=== PATIENT | male | born 1955 | race Caucasian/White ===

== ENCOUNTER → 2017-09-23 | Day surgery (SDC) | payer BC ==
[~2017-09-23] VITALS: Ht 177.8 cm; Wt 98.0 kg
[~2017-09-23] MED LIST: LISINOPRIL20 M1 PO; OMEPRAZOLE20 M2 PO
--- NOTE | 2017-09-23 10:46 | ED GI/GU/ABDOMINAL COMPLAINT ---
History of Present Illness General Chief Complaint: Abdominal Pain/Flank Pain Stated Complaint: CONSTIPATION X 3DYS/ABD PAIN Source: patient Exam Limitations: no limitations Vital Signs & Intake/Output Vital Signs & Intake/Output Vital Signs Date Time Temp Pulse Resp B/P B/P Pulse O2 O2 Flow FiO2 Mean Ox Delivery Rate 09/23 1314 96.3 88 18 162/100 97 Room Air 09/23 1240 Room Air 09/23 1041 96.9 97 18 135/89 98 Room Air Allergies Coded Allergies: codeine (Severe, TOUNGE PEEL 09/23/17) Reconcile Medications Lisinopril 20 MG TABLET 1 TAB PO DAILY HEART (Reported) Omeprazole 20 MG CAPSULE.DR 1 CAP PO DAILY GI (Reported) Triage Note: 62 YO MALE TO TRIAGE C/O LLQ PAIN AND CONSTIPATION X 3 DAYS. STATES PAIN IS WORSE WITH TAKING IN A DEEP BREATH. DENIES URIANRY S/S. DENIES [place]. STATES LLQ PAIN HAS BEEN GOING ON FOR 3-4 DAYS. Triage Nurses Notes Reviewed? yes Onset: Abrupt Duration: day(s): (FEW), constant, continues in ED Timing: recent history Quality/Severity: moderate Radiation: no radiation No Modifying Factors: none HPI: 62-year-old male comes into the emergency room with complaints of left lower abdominal pain. Denies any fever or chills. Pain is worse with a cough or deep breath. He is a decrease in bowel movements. Denies any vomiting. He denies any chest pain or shortness of breath. Denies any prior abdominal surgeries. He comes in for further evaluation. Past History Travel History Traveled to [place] past 21 day No Medical History Any Pertinent Medical History? 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 No Review of Systems Review of Systems Constitutional: Reports: no symptoms. EENTM: Reports: no symptoms. Respiratory: Reports: no symptoms. Cardiovascular: Reports: no symptoms. GI: Reports: see HPI. Genitourinary: Reports: no symptoms. Musculoskeletal: Reports: no symptoms. Skin: Reports: no symptoms. Neurological/Psychological: Reports: no symptoms. Hematologic/Endocrine: Reports: no symptoms. Immunologic/Allergic: Reports: no symptoms. All Other Systems: Reviewed and Negative Physical Exam Physical Exam General Appearance: well developed/nourished, alert, awake Head: atraumatic Eyes: Bilateral: normal appearance. Ears, Nose, Throat, Mouth: hearing grossly normal, moist mucous membrane Neck: normal inspection Respiratory: normal breath sounds, no respiratory distress Cardiovascular: regular rate/rhythm Gastrointestinal: soft, tenderness (LLQ) Back: normal inspection Extremities: normal range of motion Neurologic/Psych: awake, alert, oriented x 3 Skin: intact, normal color Core Measures ACS in differential dx? No Sepsis Present: No Sepsis Focused Exam Completed? No Progress Differential Diagnosis: appendicitis, biliary colic, bowel obstruction, diverticulitis, gastritis, ischemic bowel, pancreatitis, peptic ulcer, PUD/GERD, UTI/pyelo Plan of Care: Orders Procedure Date/time Status LACTIC ACID 09/23 1345 Active URINALYSIS 09/23 1228 Active LIPASE 09/23 1045 Complete LACTIC ACID 09/23 1045 Complete COMPREHENSIVE METABOLIC PANEL 09/23 1045 Complete CBC WITHOUT DIFFERENTIAL 09/23 1045 Complete [id number] VIEW 09/23 UNK Active Laboratory Tests 09/23/17 1129: Anion Gap 14, Estimated GFR > 60, BUN/Creatinine Ratio 16.0, Glucose 109 H, Lactic Acid 0.9, Calcium 9.5, Total Bilirubin 0.6, AST 19, ALT 23, Alkaline Phosphatase 63, Total Protein 7.0, Albumin 4.0, Globulin 3.0, Albumin/Globulin Ratio 1.3, Lipase 267, CBC w Diff NO MAN DIFF REQ, RBC 4.91, MCV 88.2, MCH 30.1, MCHC 34.1, RDW 12.5, MPV 7.4, Gran % 73.7, Lymphocytes % 16.0 L, Monocytes % 9.0, Eosinophils % 1.0, Basophils % 0.3, Absolute Granulocytes 7.5 H, Absolute Lymphocytes 1.6, Absolute Monocytes 0.9 H, Absolute Eosinophils 0.1, Absolute Basophils 0 Diagnostic Imaging: Viewed by Me: CT Scan. Discussed w/RAD: CT Scan. Radiology Impression: PATIENT: ANGEL SHIPMAN PRESENT AGE: 62 PATIENT ACCOUNT NO: [id number] : 55 LOCATION: [facility] ORDERING PHYSICIAN: Tobi TONY SERVICE DATE: 09/23/17 EXAM TYPE: CAT - CT ABD & PELVIS W/O IV CONTRAS EXAMINATION: CT ABDOMEN AND PELVIS WITHOUT CONTRAST CLINICAL INFORMATION: Left lower quadrant pain rule out diverticulitis. COMPARISON: There are no prior studies for comparison. TECHNIQUE: Multidetector volumetric imaging was performed from the superior aspect of the liver through the pubic symphysis. Sagittal and coronal reformatted images were obtained on the technologist's workstation. DLP: 549.18 mGy-cm FINDINGS: LUNG BASES: The visualized lung bases are unremarkable. LIVER, GALLBLADDER, AND BILIARY TREE: The liver is normal in size, shape, and attenuation. No focal hepatic lesion or biliary ductal dilatation is present. The gallbladder is unremarkable with no evidence of radiopaque gallstones, gallbladder wall thickening, or obvious pericholecystic inflammatory changes. PANCREAS: Unremarkable. SPLEEN: Unremarkable. ADRENAL GLANDS: There is nodular thickening of the anterior limb of the left adrenal gland without a focal adrenal mass lesion identified. KIDNEYS AND URETERS: There are 2 abutting renal calculi present which appear to be impacted within the proximal left ureter each measures approximately 6 mm in diameter. These are located approximately 3 cm distal to the ureteropelvic junction with associated left-sided hydronephrosis. A cystic structure is present in the anterior aspect of the left kidney upper pole, measuring 4.5 cm in diameter and measuring fluid density by Hounsfield units. The left kidney is edematous in appearance with perinephric stranding present which extends along the retroperitoneum distally towards the pelvis, periureteral inflammatory changes are present in the proximal left ureter. The left ureter distal to the calculi returns to normal caliber and remains normal to the level of the ureterovesical junction. The right kidney is normal in size, shape, and attenuation. No hydronephrosis, hydroureter, or calculi seen. No perinephric stranding. BLADDER: The bladder is not well distended, no calcific densities are present within the bladder lumen. GASTROINTESTINAL TRACT: A few scattered diverticuli are present probably within the sigmoid colon, there is no evidence of acute diverticulitis at this time The small bowel loops are unremarkable. The appendix is nonvisualized. ABDOMINAL WALL: No significant hernia is appreciated. LYMPH NODES: A borderline right pelvic lesion or diffuse present in the external iliac chain (series 2 image 68), measuring 1 cm in short axis dimension however the morphology of the lymph node is within normal limits. Most likely represent an incidental finding. VASCULAR: Unremarkable. PELVIC VISCERA: Coarse calcifications are present within the prostate gland. OSSEOUS STRUCTURES: Multilevel degenerative changes are noted most prominent in the lower thoracic spine. There is heterogeneous bone marrow of the L2 vertebral body which suggests multiple intraosseous hemangiomas. IMPRESSION: 1. Obstructing left ureteral calculi, two 6 millimeter calculi are abutting one another within the proximal left ureter located approximately 3 cm distal to the ureteropelvic junction. Associated edematous appearance of the left kidney, perinephric and proximal periureteral inflammatory changes are consistent with renal colic. 2. Minimal diverticular disease with no evidence of acute diverticulitis at this time. 3. Nodular thickening of the anterior limb of the left adrenal gland without identification of a discrete adrenal mass lesion. 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 <Electronically signed in Other Vendor System> SIGNED BY: Carmel Moore MD 09/23/17 1141 Initial ED EKG: none Comments: 09/23/2017 2:40:03 PM Due to the fact that the stone was obstructing Dr. Siddiqui is going to take the patient to the OR to place a stent. He came and evaluated the patient. IV meds were ordered. Patient was seen in triage initially. He was reevaluated again in the back. Departure Departure Disposition: STILL A PATIENT Condition: Stable Clinical Impression Primary Impression: Ureterolithiasis Referrals: Terry DÍAZ,Lex Moreno (PCP/Family) Departure Forms: Customer Survey General Discharge Information OR/GI Note Spoke With: Artur [facility] Treatment Decision: ANGEL SHIPMAN requires urgent operative management or an emergent procedure that cannot be performed in the Emergency Room setting. Transport To: [facility] Critical Care Note Critical Care Note Critical Care Time: 30-74 min (35)
[2017-09-23 11:36] LABS: ABSOLUTE BASOPHIL COUNT 0 /CUMM (0.0-0.2); ABSOLUTE EOSINOPHIL COUNT 0.1 /CUMM (0.0-0.7); ABSOLUTE GRANULOCYTE CT 7.5 /CUMM (1.4-6.5); ABSOLUTE LYMPH COUNT 1.6 /CUMM (1.2-3.4); ABSOLUTE MONOCYTE COUNT 0.9 /CUMM (0.10-0.60); BASOPHIL % 0.3 % (0.0-2.0); GRANULOCYTE % 73.7 % (42.2-75.2); HEMATOCRIT 43.3 % (42-52); MEAN CORPUSCULAR HGB 30.1 PG (27.0-31.0); MEAN CORPUSCULAR HGB CONC 34.1 G/DL (33.0-37.0); MEAN CORPUSCULAR VOLUME 88.2 FL (80.0-94.0); MEAN PLATELET VOLUME 7.4 FL (7.4-10.4); PLATELET COUNT 307 /CUMM (130-400); RBC DISTRIBUTION WIDTH 12.5 % (11.5-14.5); RED BLOOD CELL CT 4.91 /CUMM (4.70-6.10); WHITE BLOOD CELL COUNT 10.1 /CUMM (4.8-10.8)
--- NOTE | 2017-09-23 11:41 | CT SCAN REPORT ---
EXAMINATION: CT ABDOMEN AND PELVIS WITHOUT CONTRAST CLINICAL INFORMATION: Left lower quadrant pain rule out diverticulitis. COMPARISON: There are no prior studies for comparison. TECHNIQUE: Multidetector volumetric imaging was performed from the superior aspect of the liver through the pubic symphysis. Sagittal and coronal reformatted images were obtained on the technologist's workstation. DLP: 549.18 mGy-cm FINDINGS: LUNG BASES: The visualized lung bases are unremarkable. LIVER, GALLBLADDER, AND BILIARY TREE: The liver is normal in size, shape, and attenuation. No focal hepatic lesion or biliary ductal dilatation is present. The gallbladder is unremarkable with no evidence of radiopaque gallstones, gallbladder wall thickening, or obvious pericholecystic inflammatory changes. PANCREAS: Unremarkable. SPLEEN: Unremarkable. ADRENAL GLANDS: There is nodular thickening of the anterior limb of the left adrenal gland without a focal adrenal mass lesion identified. KIDNEYS AND URETERS: There are 2 abutting renal calculi present which appear to be impacted within the proximal left ureter each measures approximately 6 mm in diameter. These are located approximately 3 cm distal to the ureteropelvic junction with associated left-sided hydronephrosis. A cystic structure is present in the anterior aspect of the left kidney upper pole, measuring 4.5 cm in diameter and measuring fluid density by Hounsfield units. The left kidney is edematous in appearance with perinephric stranding present which extends along the retroperitoneum distally towards the pelvis, periureteral inflammatory changes are present in the proximal left ureter. The left ureter distal to the calculi returns to normal caliber and remains normal to the level of the ureterovesical junction. The right kidney is normal in size, shape, and attenuation. No hydronephrosis, hydroureter, or calculi seen. No perinephric stranding. BLADDER: The bladder is not well distended, no calcific densities are present within the bladder lumen. GASTROINTESTINAL TRACT: A few scattered diverticuli are present probably within the sigmoid colon, there is no evidence of acute diverticulitis at this time The small bowel loops are unremarkable. The appendix is nonvisualized. ABDOMINAL WALL: No significant hernia is appreciated. LYMPH NODES: A borderline right pelvic lesion or diffuse present in the external iliac chain (series 2 image 68), measuring 1 cm in short axis dimension however the morphology of the lymph node is within normal limits. Most likely represent an incidental finding. VASCULAR: Unremarkable. PELVIC VISCERA: Coarse calcifications are present within the prostate gland. OSSEOUS STRUCTURES: Multilevel degenerative changes are noted most prominent in the lower thoracic spine. There is heterogeneous bone marrow of the L2 vertebral body which suggests multiple intraosseous hemangiomas. IMPRESSION: 1. Obstructing left ureteral calculi, two 6 millimeter calculi are abutting one another within the proximal left ureter located approximately 3 cm distal to the ureteropelvic junction. Associated edematous appearance of the left kidney, perinephric and proximal periureteral inflammatory changes are consistent with renal colic. 2. Minimal diverticular disease with no evidence of acute diverticulitis at this time. 3. Nodular thickening of the anterior limb of the left adrenal gland without identification of a discrete adrenal mass lesion.
[2017-09-23 13:14] VITALS: BP 162/100
--- NOTE | 2017-09-23 13:43 | Cons- Urology ---
General Information and HPI Consulting Request Date of Consult: 09/23/17 Requested By: DO Saenz Gregory-E.R. Reason for Consult: left hydro. with severe colic and obst. ureter stone. Source of Information: patient, family, old records Exam Limitations: no limitations History of Present Illness: 62 yr old pt with 3 days of abd. pain . significantly worse this am and came to ER. CT positive for obst. stone-pain unrelenting. Here for stent then subsequent ESWL stent removal Allergies/Medications Allergies: Coded Allergies: codeine (Severe, TOUNGE PEEL 09/23/17) Home Med List: Lisinopril 20 MG TABLET 1 TAB PO DAILY HEART (Reported) Omeprazole 20 MG CAPSULE.DR 1 CAP PO DAILY GI (Reported) Current Medications: Current Medications Sig/Abhi Start time Last Medication Dose Route Stop Time Status Admin Ketorolac 0 .STK-MED ONE 09/23 1300 DC Tromethamine .ROUTE Ketorolac 30 MG ONCE ONE 09/23 1245 DC 09/23 Tromethamine IV 09/23 1246 1253 Sodium Chloride 1,000 ML BOLUS ONE 09/23 1245 AC 09/23 IV 09/23 1344 1253 Past History Medical History Neurological: NONE EENT: NONE Cardiovascular: hypertension Respiratory: NONE Gastrointestinal: GERD, HIATAL HERNIA Hepatic: NONE Renal: NONE Musculoskeletal: NONE Psychiatric: NONE Endocrine: NONE Blood Disorders: NONE Cancer(s): 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 Ambulation: independent Employment History Retired? unknown Review of Systems Review of Systems Constitutional: Reports: see HPI. EENTM: Denies: no symptoms. Cardiovascular: Denies: no symptoms. Respiratory: Denies: no symptoms. GI: Reports: abdominal pain, bloating. Genitourinary: Denies: no symptoms. Musculoskeletal: Denies: no symptoms. Skin: Denies: no symptoms. Exam & Diagnostic Data Vital Signs and I&O Vital Signs Date Time Temp Pulse Resp B/P B/P Pulse O2 O2 Flow FiO2 Mean Ox Delivery Rate 09/23 1314 96.3 88 18 162/100 97 Room Air 09/23 1240 Room Air 09/23 1041 96.9 97 18 135/89 98 Room Air Intake & Output 09/23 1600 09/23 0800 09/23 0000 09/22 1600 09/22 0800 09/22 0000 Intake Total Output Total Balance Patient 216 lb Weight Weight Reported by Patient Measurement Method Physical Exam General Appearance: well developed/nourished, moderate distress Head: atraumatic Eyes: Bilateral: normal appearance. Respiratory: normal breath sounds Cardiovascular: regular rate/rhythm Gastrointestinal: normal bowel sounds, soft, non-tender Back: CVA tenderness (L) Extremities: normal inspection Neurologic/Psych: no motor/sensory deficits, awake, alert, oriented x 3 Skin: intact, normal color Reproductive: Normal male genitalia Last 24 Hours of Labs: Laboratory Tests 09/23 1129 Chemistry Sodium (137 - 145 mmol/L) 142 Potassium (3.5 - 5.1 mmol/L) 4.3 Chloride (98 - 107 mmol/L) 105 Carbon Dioxide (22 - 30 mmol/L) 24 Anion Gap (5 - 16) 14 BUN (9 - 20 mg/dL) 16 Creatinine (0.7 - 1.2 mg/dL) 1.0 Estimated GFR (>60 ml/min) > 60 BUN/Creatinine Ratio (7 - 25 %) 16.0 Glucose (65 - 99 mg/dL) 109 H Lactic Acid (0.7 - 2.1 mmol/L) 0.9 Calcium (8.4 - 10.2 mg/dL) 9.5 Total Bilirubin (0.2 - 1.3 mg/dL) 0.6 AST (17 - 59 U/L) 19 ALT (21 - 72 U/L) 23 Alkaline Phosphatase (< 127 U/L) 63 Total Protein (6.3 - 8.2 g/dL) 7.0 Albumin (3.5 - 5.0 g/dL) 4.0 Globulin (1.9 - 4.2 gm/dL) 3.0 Albumin/Globulin Ratio (1.1 - 2.2 %) 1.3 Lipase (23 - 300 U/L) 267 Hematology CBC w Diff NO MAN DIFF REQ WBC (4.8 - 10.8 /CUMM) 10.1 RBC (4.70 - 6.10 /CUMM) 4.91 Hgb (14.0 - 18.0 G/DL) 14.8 Hct (42 - 52 %) 43.3 MCV (80.0 - 94.0 FL) 88.2 MCH (27.0 - 31.0 PG) 30.1 MCHC (33.0 - 37.0 G/DL) 34.1 RDW (11.5 - 14.5 %) 12.5 Plt Count (130 - 400 /CUMM) 307 MPV (7.4 - 10.4 FL) 7.4 Gran % (42.2 - 75.2 %) 73.7 Lymphocytes % (20.5 - 51.1 %) 16.0 L Monocytes % (1.7 - 9.3 %) 9.0 Eosinophils % (0 - 5 %) 1.0 Basophils % (0.0 - 2.0 %) 0.3 Absolute Granulocytes (1.4 - 6.5 /CUMM) 7.5 H Absolute Lymphocytes (1.2 - 3.4 /CUMM) 1.6 Absolute Monocytes (0.10 - 0.60 /CUMM) 0.9 H Absolute Eosinophils (0.0 - 0.7 /CUMM) 0.1 Absolute Basophils (0.0 - 0.2 /CUMM) 0 Imaging Results: PATIENT: ANGEL SHIPMAN PRESENT AGE: 62 PATIENT ACCOUNT NO: [id number] : 55 LOCATION: [facility] ORDERING PHYSICIAN: Tobi TONY SERVICE DATE: 09/23/17 EXAM TYPE: CAT - CT ABD & PELVIS W/O IV CONTRAS EXAMINATION: CT ABDOMEN AND PELVIS WITHOUT CONTRAST CLINICAL INFORMATION: Left lower quadrant pain rule out diverticulitis. COMPARISON: There are no prior studies for comparison. TECHNIQUE: Multidetector volumetric imaging was performed from the superior aspect of the liver through the pubic symphysis. Sagittal and coronal reformatted images were obtained on the technologist's workstation. DLP: 549.18 mGy-cm FINDINGS: LUNG BASES: The visualized lung bases are unremarkable. LIVER, GALLBLADDER, AND BILIARY TREE: The liver is normal in size, shape, and attenuation. No focal hepatic lesion or biliary ductal dilatation is present. The gallbladder is unremarkable with no evidence of radiopaque gallstones, gallbladder wall thickening, or obvious pericholecystic inflammatory changes. PANCREAS: Unremarkable. SPLEEN: Unremarkable. ADRENAL GLANDS: There is nodular thickening of the anterior limb of the left adrenal gland without a focal adrenal mass lesion identified. KIDNEYS AND URETERS: There are 2 abutting renal calculi present which appear to be impacted within the proximal left ureter each measures approximately 6 mm in diameter. These are located approximately 3 cm distal to the ureteropelvic junction with associated left-sided hydronephrosis. A cystic structure is present in the anterior aspect of the left kidney upper pole, measuring 4.5 cm in diameter and measuring fluid density by Hounsfield units. The left kidney is edematous in appearance with perinephric stranding present which extends along the retroperitoneum distally towards the pelvis, periureteral inflammatory changes are present in the proximal left ureter. The left ureter distal to the calculi returns to normal caliber and remains normal to the level of the ureterovesical junction. The right kidney is normal in size, shape, and attenuation. No hydronephrosis, hydroureter, or calculi seen. No perinephric stranding. BLADDER: The bladder is not well distended, no calcific densities are present within the bladder lumen. GASTROINTESTINAL TRACT: A few scattered diverticuli are present probably within the sigmoid colon, there is no evidence of acute diverticulitis at this time The small bowel loops are unremarkable. The appendix is nonvisualized. ABDOMINAL WALL: No significant hernia is appreciated. LYMPH NODES: A borderline right pelvic lesion or diffuse present in the external iliac chain (series 2 image 68), measuring 1 cm in short axis dimension however the morphology of the lymph node is within normal limits. Most likely represent an incidental finding. VASCULAR: Unremarkable. PELVIC VISCERA: Coarse calcifications are present within the prostate gland. OSSEOUS STRUCTURES: Multilevel degenerative changes are noted most prominent in the lower thoracic spine. There is heterogeneous bone marrow of the L2 vertebral body which suggests multiple intraosseous hemangiomas. IMPRESSION: 1. Obstructing left ureteral calculi, two 6 millimeter calculi are abutting one another within the proximal left ureter located approximately 3 cm distal to the ureteropelvic junction. Associated edematous appearance of the left kidney, perinephric and proximal periureteral inflammatory changes are consistent with renal colic. 2. Minimal diverticular disease with no evidence of acute diverticulitis at this time. 3. Nodular thickening of the anterior limb of the left adrenal gland without identification of a discrete adrenal mass lesion. Assessment/Plan Assessment/Plan left obstructed kidney with severe colic: LEFT stent today-ESWL next week. Copies To: Aaron Siddiqui MD Consult Acknowledgment - Thank you for your consult request. Attending MD Review Statement Attending Statement Attending MD Statement: examined this patient, discuss w/resident/PA/VIOLIN MA[employer]ER [employer] Attending Assessment/Plan: for left stent now: will ESWL and stent DC next week.
--- NOTE | 2017-09-23 15:01 | RADIOLOGY REPORT ---
EXAMINATION: XR ABDOMEN , C-arm imaging CLINICAL INDICATION: LT URETEROSCOPY, RETROGRADE AND STENT INSERTION IN OR COMPARISON: CT abdomen pelvis 09/23/2017 TECHNIQUE: C-arm imaging abdomen. Dose: 24.2 mGy Number of images: 3 Fluoroscopy time: 1.4 minutes FINDINGS: Spot views were obtained during placement of a left ureteral stent. The bladder is catheterized with a guidewire placed into the left ureter. Subsequently a double-J stent is placed in position. The proximal catheter overlies the left renal area. IMPRESSION: C-arm imaging for placement of left ureteral stent.
--- NOTE | 2017-09-23 19:33 | Operative Report ---
Operative/Inv Procedure Report Surgery Date: 09/23/17 Name of Procedure: Dilatation of urethral stricture. Cystoscopy: left retrograde pyelogram wtih fluoroscopy. left stent placement (cook black silicone) Pre-Operative Diagnosis: Severe left renal colic, with obstructing ureter stone. Post-Operative Diagnosis: Same, urethral stricture distally with hypospadias at the coronal level Estimated Blood Loss: scant Surgeon/Senior Power Plant Operator: MD Artur, Arnold-urology Anesthesia: laryngeal mask airway IV Fluids: D5 1/2 SALINE AT 100 CC/HOUR. Drains: none Specimens: NONE Complications: None Condition: Improved and pain free Operative/Procedure Note Note: The patient was taken to the operating room placed on the OR table in supine position. radiologic images were reviewed pre-operatively. Timeout was performed, with the patient awake, in order to confirm the patient's identity, planned procedure, anesthesia antibiotics, as well as other pertinent apple- operative information. After adequate anesthesia and antibiotics, the patient was then placed in lithotomy stirrups, draped and prepped in the usual surgical fashion. A 22 Belarusian cystoscope sheath with 30 angle lens was inserted into the bladder without significant difficulty. The bladder was noted to be free of tumor free of stone. Both ureteral orifices were in their orthotopic position with clear reflux from the right side, and no reflux on the left side despite peristalsis. An 8 Belarusian cone-tipped catheter was inserted into the left ureteral orifice, and gentle retrograde pyelogram, with fluoroscopy, was performed. The obstructing left ureter stone was visualized, as well as proximal hydronephrosis due to the stone. The cone-tipped catheter was removed with drainage of distal ureter contrast material. Under direct visualization, the left orifice was intubated with a 0.035 Glidewire, which advanced into the left renal pelvis, by- passing the obstructing stone, without significant difficulty. With the Glidewire in proper place, the 6 x 22cm cOOK BLACK silicone stent was then railroaded over the Glidewire, and advanced into the left renal pelvis without difficulty. With the proximal coil visualized, by fluoroscopy, in the left renal pelvis, and the distal coil seen in the bladder, via cystoscope, the Glidewire was removed without difficulty. Proper placement of stent was confirmed both fluoroscopically, as well as cystoscopically. The bladder was drained and the cystoscope was then removed. The patient tolerated procedure well was then taken to the recovery room in satisfactory condition. She will be discharged home with pain meds, abx, and instructions to make f/u appointment for further managment of stone and stent. Findings: The patient was taken to the operating room placed on the OR table in supine position. radiologic images were reviewed pre-operatively. Timeout was performed, with the patient awake, in order to confirm the patient's identity, planned procedure, anesthesia antibiotics, as well as other pertinent apple- operative information. After adequate anesthesia and antibiotics, the patient was then placed in lithotomy stirrups, draped and prepped in the usual surgical fashion. A 22 Belarusian cystoscope sheath with 30 angle lens was inserted into the bladder without significant difficulty. The bladder was noted to be free of tumor free of stone. Both ureteral orifices were in their orthotopic position with clear reflux from the right side, and no reflux on the left side despite peristalsis. An 8 Belarusian cone-tipped catheter was inserted into the left ureteral orifice, and gentle retrograde pyelogram, with fluoroscopy, was performed. The obstructing left ureter stone was visualized, as well as proximal hydronephrosis due to the stone. The cone-tipped catheter was removed with drainage of distal ureter contrast material. Under direct visualization, the left orifice was intubated with a 0.035 Glidewire, which advanced into the left renal pelvis, by- passing the obstructing stone, without significant difficulty. With the Glidewire in proper place, the 6 x 22cm cOOK BLACK silicone stent was then railroaded over the Glidewire, and advanced into the left renal pelvis without difficulty. With the proximal coil visualized, by fluoroscopy, in the left renal pelvis, and the distal coil seen in the bladder, via cystoscope, the Glidewire was removed without difficulty. Proper placement of stent was confirmed, both fluoroscopically, as well as cystoscopically. The bladder was drained and the cystoscope was then removed. The patient tolerated procedure well was then taken to the ICU in satisfactory condition. She will be discharged home with pain meds, abx, and instructions to make f/u appointment for further managment of stone and stent.
== END ==
LOC: ERH 10:27 → ER-OR 10:49 → STS 13:27 → ER-OR 13:27
PROVIDERS: Physician Assistant Medical
DX: N13.2 Hydronephrosis with renal and ureteral calculous obstruction (principal); Q54.0 Hypospadias, balanic; N35.9 Urethral stricture, unspecified; I10 Essential (primary) hypertension; K21.9 Gastro-esophageal reflux disease without esophagitis
CPT/HCPCS: 74018; 74176; 96374; J0696; J1885; J2250; J3010

== ENCOUNTER → 2017-09-30 | Day surgery (SDC) | payer BC ==
[~2017-09-30] VITALS: Ht 177.8 cm; Wt 93.9 kg
--- NOTE | 2017-09-30 14:49 | Operative Report ---
Operative/Inv Procedure Report Surgery Date: 09/30/17 Name of Procedure: left ureter ESWL: fluoroscopy Pre-Operative Diagnosis: left ureter stone. Post-Operative Diagnosis: same Estimated Blood Loss: none Surgeon/Glass Inserter: Aaron Siddiqui MD Anesthesia: moderate sedation Specimens: none Complications: stone did NOT break after 3000 shockwaves Operative/Procedure Note Note: The patient was taken to the operating room and placed on the ESWL table in supine position. Time out was performed, with the patient awake, to confirm identity, procedure, laterality, and other pertinent apple-operative information. After adequate anesthesia, and antibiotics, the patient was positioned so that the left flank was placed over the ESWL table cut-out, and overlying the dome of the shockwave generator. C-arm fluroscopy, as well as renal US was used to locate the stone, and evaluate the left kidney. The stone was visible on fluroloscopy at the mid-left ureter. Renal US confirmed mild hydronephrosis, with no additional stone seen in the left kidney. The left ureter stone was approximate 10 mm in size, and densely visible with fluoroscopy. Using fluoroscopy, the position of the ureter stone was optimized for ESWL, using AP, and oblique views of the stone. Subsequently, E.S.W.L. was initiated at low power levels x 200 shocks. After noting the patient's tolerance to the shockwaves, the shock wave power level was quickly maximized. At the end of the procedure, the composition of the stone had NOT changed significantly indicating the poor pulverization of the ureter stone. A total of 3000 shockwaves were delivered to the stone in order to achieve adequate lithotrypsy. The patient tolerated the procedures well, was awakened, and taken to recovery in satisfactory condition via stretcher. The pt will eventually be dischared to home with pain meds, diet orders, and intructions to catch fragments with straining the urine. The patient is to have follow-up renal ultrasound and KUB (after the left renal stone is treated as well). Findings: dense left ureter stone did NOT break despite 3000 shockwaves-stent left in place Discharge Disposition: Same Day Admissions Additional Comments: pt to have f/u KUB and likely ureteroscopy with laser in near future. CC: Aaron Siddiqui MD
== END ==
LOC: STS 07:00
DX: N13.2 Hydronephrosis with renal and ureteral calculous obstruction (principal); I10 Essential (primary) hypertension
CPT/HCPCS: 93005; 93010; J2250

== ENCOUNTER → 2017-10-07 | Day surgery (SDC) | payer OTHER ==
[~2017-10-07] VITALS: Ht 177.8 cm; Wt 93.9 kg
--- NOTE | 2017-10-07 09:18 | Operative Report ---
Operative/Inv Procedure Report Surgery Date: 10/07/17 Name of Procedure: cysto: left ureteroscopy laser litho. ureter stone, stent removal, fluoroscopy. Pre-Operative Diagnosis: left ureter stone refractory to ESWL, left stent Post-Operative Diagnosis: same Estimated Blood Loss: alex Surgeon/Corporate Sales Representative: Aaron Siddiqui MD Anesthesia: laryngeal mask airway Specimens: left ureter stone fragment and stent. Complications: none Operative/Procedure Note Note: The patient was taken to the operating room and placed on the OR table in supine position. Timeout was performed, with the patient awake, in order to confirm correct identity, procedure, laterality, and other pertinent apple-operative information. After adequate anesthesia and antibiotics, the patient was then placed in lithotomy stirrups, draped and prepped in the usual surgical fashion. The Holmium Yag Laser was confirmed in the room and on standby. A 22 Mongolian cystoscope sheath with 30 angle lens was inserted into the bladder without difficulty. Upon entering the bladder, the bladder was noted to be free of tumor , and free of stone. Both orifices were in their orthotopic position, with clear efflux of urine from the right. The left ureter orifice was intubated with a stent which was grasped, using an alligator forcep, and the grasper, stent, and lens was removed through the 22 Mongolian sheath without difficulty. The cystoscope lens was then reinserted into the sheath. A 0.035 guidewire was inserted into the left ureter orifice, and advanced into the left renal pelvis, bypassing the ureter stone, without difficulty. Leaving the Glidewire in place, the cystoscope was removed. Over the guidewire, a 10 Mongolian self dilating ureteral access sheath was railroaded. With fluoroscopic visualization, the access sheath, with the obturator, was advanced with fluoroscopic visualization into the left ureter without difficulty. The Glidewire were as well as the obturator was then removed, leaving the access sheath in place. The Flexible ureteroscope was inserted into the left access sheath, and advanced up the left ureter, with fluoroscopy visualization. A retrograde pyelogram was again performed via the ureteroscope revealing a large filling defect in the proximal ureter consistent with stone. The ureteroscope was advanced under direct visualization, until the stone was clearly visible a 365 holmium laser fiber was inserted through the ureteroscope. Under direct contact with the stone, the laser was activated, and a thorough laser lithotripsy of this very hard stone was performed. Once the stone was fragmented well enough, the basket extraction of the fragments was then performed in order to remove all of the large pieces from the left ureter. The ureteroscope was then advanced once again into the left ureter, and into the left renal pelvis and and all the calyces of the left kidney in order to confirm no further stone, or tumor, was present. The entire length of the ureter was also visualized carefully on the way out, and no stone, or tumor was seen. The bladder was then drained, after the ureteroscope was removed. The patient tolerated the procedure well was then taken to the recovery room in satisfactory condition. The patient is to follow up in 4 - 6 weeks for POC. Findings: very hard left ureter stone Discharge Disposition: PACU CC: Aaron Siddiqui MD
--- NOTE | 2017-10-08 08:20 | RADIOLOGY REPORT ---
EXAMINATION: Intraoperative fluoroscopy CLINICAL INFORMATION: Ureteral calculus COMPARISON: The CT abdomen pelvis and intraoperative fluoroscopic imaging 09/23/2017 TECHNIQUE: Intraoperative fluoroscopy was provided for use by Dr. Siddiqui. A total of 7 images were saved to PACS. TOTAL FLUOROSCOPIC TIME: 24 seconds FINDINGS\E\IMPRESSION: Intraoperative fluoroscopy provided for use by Dr. Siddiqui. Please see operative note for detailed findings.
== END ==
LOC: STS 02:47
DX: N20.1 Calculus of ureter (principal); I10 Essential (primary) hypertension; K21.9 Gastro-esophageal reflux disease without esophagitis
CPT/HCPCS: 74018; J0131; J2250